=== PATIENT | male | born 1985 | race Caucasian/White ===

== ENCOUNTER 2022-11-03 15:40 | Emergency (ER) | payer OTHER ==
[~2022-11-03] VITALS: Ht 193 cm; Wt 108.9 kg
[2022-11-03] MEDS ORDERED: NAPROSYN500 MG PO (15:58)
== END 2022-11-03 17:17 | disposition home or self-care (01) ==
LOC: ED 15:40
DX: S06.0X0A Concussion without loss of consciousness, initial encounter (principal); W22.8XXA Striking against or struck by other objects, initial encounter; Z79.899 Other long term (current) drug therapy
CPT/HCPCS: 70450; 99284-25; A9270